=== PATIENT | male | born 1990 | race Caucasian/White ===

== ENCOUNTER → 2017-10-04 16:06 | Outpatient (CLI) | payer BC, SELFPAY ==
--- NOTE | 2017-10-04 16:17 | US_ITS ---
STUDY: SCROTUM ULTRASOUND REASON FOR EXAM: Male, 27 years old. BILAT TESTICLE PAIN INTERMITTENT TECHNIQUE: Ultrasound evaluation of the scrotum was performed with color Doppler and static msith-scale imaging. COMPARISON: 10.06.13. FINDINGS: RIGHT TESTICLE INTRATESTICULAR: There is a normal size of the right testicle. The right testicle measures 4x2.7x1.6 cm. There is a homogenous echotexture. There is normal arterial and normal venous vascularity. Microcalcifications noted. EXTRATESTICULAR: The epididymis is normal in size. The epididymis head measures .9x.9x.8 cm. There is normal vascularity of the epididymis. There is no demonstrated epididymal cystic structure. There is no demonstrated hydrocele. There is no demonstrated varicocele. There is no demonstrated extratesticular mass or cyst. LEFT TESTICLE INTRATESTICULAR: There is a normal size of the left testicle. The left testicle measures 3.7 x 2.4 x 1.6 cm. There is a heterogeneous echotexture. There is normal arterial and normal venous vascularity. Single left micro-calcification. EXTRATESTICULAR: The epididymis is normal in size. The epididymis head measures .6x.8x.6 cm. There is normal vascularity of the epididymis. There is no demonstrated epididymal cystic structure. There is no demonstrated hydrocele. There is no demonstrated varicocele. There is no demonstrated extratesticular mass or cyst. US/Testicular with Arterial Flow IMPRESSION: Normal bilateral testicles without evidence for testicular torsion. Since the prior study there is been development of multiple microcalcifications in the right testicle. Single new micro calcification of the left testicle. Surveillance is warranted. There is an association with microcalcifications and carcinomas. Electronically Signed: Isreal Aviles MD at 18:40 EDT , Service support ,
== END ==
PROVIDERS: Visit Provider Urology
DX: N50.812 Left testicular pain (principal)
CPT/HCPCS: 76870; 93976